=== PATIENT | male | born 1955 | race Caucasian/White ===

== ENCOUNTER → 2024-07-05 11:18 | Outpatient (REF) | payer MEDICARE, BC, SELFPAY | LOC: HWRCS 11:18 | PROVIDERS: ATTENDING PHYSICIAN Internal Medicine Cardiovascular Disease; FAMILY PHYSICIAN Student in an Organized Health Care Education/Training Program | DX: Z86.73 Personal history of transient ischemic attack (TIA), and cerebral infarction without residual deficits (principal) | CPT/HCPCS: 93306 ==